=== PATIENT | male | born 1945 | race Caucasian/White ===

== ENCOUNTER 2023-03-14 14:04 | Emergency (ER) | payer OTHER, MEDICARE ==
[2023-03-14 14:35] LABS: BASOPHILS PERCENT AUTO 0.2 % (0.2-1.2); EOSINOPHILS ABSOLUTE AUTO 0.1 x10^3/uL (0.0-0.5); HEMOGLOBIN 16.7 g/dL (14.0-18.0); LYMPHOCYTES PERCENT AUTO 30.6 % (25.0-50.0); MEAN CORPUSCULAR HEMOGLOBIN 31.4 pg (26.0-32.0); MEAN CORPUSCULAR HGB CONC 34.1 g/dL (32.0-36.0); MEAN CORPUSCULAR VOLUME 92.1 fL (78.0-93.0); MONOCYTES ABSOLUTE AUTO 0.7 x10^3/uL (0.0-0.8); MONOCYTES PERCENT AUTO 10.7 % (2.0-11.0); NEUTROPHILS ABSOLUTE AUTO 3.6 x10^3/uL (1.8-7.7); NEUTROPHILS PERCENT AUTO 56.5 % (50.0-80.0); PLATELET COUNT,PLT 237 x10^3/uL (130-400); RED BLOOD CELL COUNT 5.32 x10^6/uL (4.5-6.0); WHITE BLOOD CELL COUNT,WBC 6.4 x10^3/uL (4.0-10.0)
[2023-03-14 14:52] LABS: A/G RATIO 1.03; ALANINE AMINOTRANSFERASE,ALT 38 U/L (16-63); ALBUMIN 3.9 g/dL (3.4-5.0); ALKALINE PHOSPHATASE 60 U/L (46-116); ASPARTATE AMNIOTRANSFERASE,AST 33 U/L (15-37); BILIRUBIN TOTAL 0.7 mg/dL (0.2-1.0); BLOOD UREA NITROGEN,BUN 21 mg/dL (7-18); CARBON DIOXIDE,CO2 27 mmol/L (21-32); CHLORIDE,CL 105 mmol/L (98-107); CREATININE 1.4 mg/dL (0.70-1.30); GLUCOSE RANDOM 112 mg/dL (70-99); MAGNESIUM 2.1 mg/dL (1.8-2.4); POTASSIUM,K 4.6 mmol/L (3.5-5.1); PROTEIN TOTAL,TP 7.7 g/dL (6.4-8.2); SODIUM,NA 142 mmol/L (136-145)
[2023-03-14 14:58] LABS: ANION GAP 14.6 mmol/L (5-15)
[2023-03-14 14:59] LABS: ESTIMATED GFR 52 mL/min (>=60)
[2023-03-14] MEDS ORDERED: Take Home: Naproxen 500 MG Tab, 4 Tab Pack PO ONE (17:02)
== END 2023-03-14 17:16 | disposition home or self-care (01) ==
LOC: VM.ED 14:04
DX: R20.2 Paresthesia of skin (principal)
CPT/HCPCS: 36415; 70450; 72125; 72131; 80053; 83735; 84484; 85025; 93005; 93010; 99284; A9270-GY